=== PATIENT | female | born 1940 | race Caucasian/White ===

== ENCOUNTER 2017-10-16 08:39 | Inpatient (IN) | payer MEDICARE, OTHER ==
--- NOTE | 2017-10-03 15:35 | HP ---
HISTORY AND PHYSICAL: DATE OF ADMISSION/SURGERY: 10/16/17 DATE OF OFFICE VISIT: 10/03/17 SURGEON: Puja Matta MD * (DICTATED BY ANI BALDERRAMA) PROCEDURE: Right total hip arthroplasty. CHIEF COMPLAINT: Right hip pain. HISTORY OF PRESENT ILLNESS: Ms. Delgado is a 77-year-old female with complaints of right hip pain secondary to end-stage osteoarthritis. She has failed conservative management and elected to proceed with a right total hip arthroplasty, which is scheduled for 10/16/[address] Matta. PAST MEDICAL HISTORY: Hypertension, high cholesterol, and obesity. PAST SURGICAL HISTORY: Bilateral total knee arthroplasties, cholecystectomy, hernia repair, and lumpectomies. CURRENT MEDICATIONS: 1. Simvastatin 10 mg q.h.s. 2. Lisinopril 40 mg daily. 3. Hydrochlorothiazide 25 mg daily. 4. Omeprazole 20 mg daily. 5. Soolantra 1% to face as needed. 6. Ibuprofen 400 mg as needed. 7. Move Free joint supplement. 8. Centrum Silver. 9. Vitamin D. 10. Vitamin B6. ALLERGIES: SULFA ANTIBIOTICS. FAMILY HISTORY: Diabetes, heart disease, hypertension, stroke, cancer, and RA. SOCIAL HISTORY: She is a 77-year-old female. She lives with her spouse. She does not smoke or use drugs. Uses occasional alcohol. REVIEW OF SYSTEMS: A complete 14-point review of systems was reviewed with the patient. It was positive for GERD. She denies history of DVT, PE, hepatitis C , HIV, MRSA, or anesthesia problems. PHYSICAL EXAMINATION GENERAL: She is well developed, well nourished, in no acute distress. VITAL SIGNS: She stands 5 feet 4 inches tall, weighs 250 pounds. Her blood pressure is 160/80, her heart rate is 88. HEENT: Normocephalic, atraumatic. NECK: Supple. No palpable lymph nodes. PULMONARY: Lungs are clear to auscultation bilaterally. CARDIO: Regular rate and rhythm. Strong S1, S2. ABDOMEN: Soft, nontender, nondistended. NEUROLOGICAL: She is alert and oriented x3. Cranial nerves II through XII are intact. MUSCULOSKELETAL: Right lower extremity, the skin is intact. No open wounds or abrasions. She walks with an antalgic type gait, favoring her right hip. She has decreased internal and external rotation of the right hip. She has 2+ dorsalis pedis pulses. Intact sensation in her lower extremities. Muscle group strengths are intact at 5/5. ASSESSMENT AND PLAN: Ms. Delgado is a 77-year-old female with complaints of right hip pain secondary to end-stage osteoarthritis. She has failed conservative management and elected to proceed with a right total hip arthroplasty, which is scheduled for 10/16/[address] Matta discussed the risks and benefits of the surgery at today's visit and all of her questions were answered. Coumadin, Colace, and Percocet were sent to her pharmacy for postoperative pain control and DVT prophylaxis. She will see Dr. Matta back in 2 weeks after the surgery. ANI BALDERRAMA [id number]/[facility] #: [id number] MTDD
[~2017-10-16 08:39] MED LIST: Buffered Lidocaine 0.9% SYRIN* 5 ML/SYR SYRINGE INTRADERM ONE; Dexamethasone IV* 4 MG/ML 1 ML (4 MG) IV SLOW PU ONE
[2017-10-16] MEDS ORDERED: ceFAZolin 2 GM PREMIX (*) 2 GM/50 ML BAG IVPB ONE (08:48)
[2017-10-16] MEDS ORDERED: Dexamethasone IV* 4 MG/ML 1 ML (4 MG) ONE (08:48)
[2017-10-16] MEDS ORDERED: Buffered Lidocaine 0.9% SYRIN* 5 ML/SYR SYRINGE ONE (08:48)
[2017-10-16] MEDS ORDERED: KETAMINE HCL* 50 MG/ML 10 ML VIAL ONE (10:46)
[2017-10-16] MEDS ORDERED: Morphine PF AMP (0.5MG/ML)* 5 MG/10 ML AMP ONE (10:46)
[2017-10-16] MEDS ORDERED: Midazolam* 1 MG/ML 10 ML VIAL (10 MG) ONE (10:46)
[2017-10-16] MEDS ORDERED: Propofol* 10 MG/ML 20 ML BTL IV PUSH ONE (10:47)
[2017-10-16] MEDS ORDERED: Ondansetron INJ* 2 MG/ML VIAL ONE (10:47)
[2017-10-16] MEDS ORDERED: Bupivacaine 0.5% SDV PF* 30 ML VIAL ONE (12:06)
[2017-10-16] MEDS ORDERED: Phenylephrine INJ* 10 MG/ML 1 ML VIAL (10 MG) ONE ×2 (13:06→15:02)
[2017-10-16] MEDS ORDERED: Ondansetron INJ* 2 MG/ML VIAL IV PRN (13:11)
[2017-10-16] MEDS ORDERED: DiMENhydriNATE IV* 50 MG/ML VIAL IV PUSH PRN (13:11)
[2017-10-16] MEDS ORDERED: oxyCODONE/Acetamin 5/325 MG* TAB PO PRN (13:11)
[2017-10-16] MEDS ORDERED: Nalbuphine* 20 MG/ML 1 ML VIAL IV PRN ×2 (13:11)
[2017-10-16] MEDS ORDERED: Naloxone* 0.4 MG/ML 1 ML VIAL IV PRN (13:11)
[2017-10-16] MEDS ORDERED: Lidocaine 2% PF * 5 ML VIAL ONE (13:27)
[2017-10-16] MEDS ORDERED: Scopolamine 1.5 mg* PATCH TRANSDERM SCH (14:00)
[2017-10-16] MEDS ORDERED: Ropivacaine* 300 MG in NS 0.9% 250 ML* 240 ML EPIDURAL SCH (14:00)
[2017-10-16] MEDS ORDERED: Acetaminophen TAB* 325 MG PO PRN (14:13)
[2017-10-16] MEDS ORDERED: diPHENhydraMINE IV* 50 MG/ML 1 ml VIAL (BENADRYL) IV PRN (14:13)
[2017-10-16] MEDS ORDERED: Polyethylene Glycol 3350* 17 GM PACKET PO PRN (14:13)
[2017-10-16] MEDS ORDERED: Bisacodyl SUPP* 10 MG SUPP PR PRN (14:13)
[2017-10-16] MEDS ORDERED: diPHENhydraMINE PO* 25 MG PO PRN (14:13)
--- NOTE | 2017-10-16 14:49 | RAD ---
INDICATION: Right total hip replacement COMPARISON: August 27, 2017 TECHNIQUE: A crosstable lateral portable view the right hip was obtained in the OR FINDINGS: There is placement acetabular cup and femoral stem for sizing purposes. The bony detail is limited due to portable crosstable lateral technique.
[2017-10-16] MEDS ORDERED: ceFAZolin 1 GM VIAL(*) 1 GM in NS 0.9% 50 ML* 50 ML IVPB SCH (15:00)
[2017-10-16] MEDS: CMCS:Simvastatin TAB(NF) 10 MG TAB PO SCH (17:57)
[2017-10-16] MEDS ORDERED: Lisinopril TAB* 10 MG PO SCH (18:00)
--- NOTE | 2017-10-16 18:10 | RAD ---
HISTORY: Postop right hip arthroplasty COMPARISONS: August 27, 2017 VIEWS: 4, Frontal view of the pelvis with frontal and crosstable lateral views of the right hip FINDINGS: BONE DENSITY: Normal. BONES: The patient is status post right hip arthroplasty. There is no hardware failure or osteolysis. JOINTS: The patient is status post right hip arthroplasty. There is moderate osteoarthritis of the left hip. ALIGNMENT: There is no dislocation. SOFT TISSUES: Unremarkable. OTHER FINDINGS: Degenerative changes are noted of the spine IMPRESSION: STATUS POST RIGHT HIP ARTHROPLASTY
[2017-10-16] MEDS ORDERED: Warfarin TAB(*) 6 MG PO ONE (18:35)
[2017-10-16] MEDS: ceFAZolin 1 GM in Dextrose (*) 1 GM/50 ML BAG IVPB SCH (20:12)
[2017-10-16] MEDS: Docusate CAP* 100 MG PO SCH (20:13)
[2017-10-16] MEDS: Magnesium Hydroxide LIQ* 30 ML UDC PO SCH (20:13)
--- NOTE | 2017-10-16 23:53 | CONS ---
CC: Dr. Marck Pastor; Dr. Puja Matta * CONSULTATION REPORT: DATE OF CONSULT: 10/16/17 PRIMARY CARE PROVIDER: Dr. Marck Pastor. ATTENDING PHYSICIAN: Dr. Terence Hernandez (dictated by Marivel Mccoy NP). PHYSICIAN REQUESTING CONSULTATION: Dr. Puja Matta. REASON FOR CONSULTATION: Co-medical management in a patient with a history of hypertension, hyperlipidemia, and obesity. HISTORY OF PRESENT ILLNESS: Ms. Delgado is a 77-year-old female with a past medical history significant for hypertension, hyperlipidemia, obesity, osteoarthritis, who presented to the hospital today for an elective right total hip arthroplasty with Dr. Matta. The patient states that leading up to her surgery, she has been in her usual state of health. She denies any recent fever , chills, chest pain, shortness of breath, nausea, vomiting, diarrhea. She does report right hip pain. Due to the patient failing conservative measures, she underwent an elective right total hip arthroplasty. The hospitalists were asked to assist with the co-medical management of this patient during her hospitalization. PAST MEDICAL HISTORY: 1. Hypertension. 2. Hyperlipidemia. 3. Obesity. 4. Osteoarthritis. 5. Rosacea. 6. Osteopenia. PAST SURGICAL HISTORY: 1. Status post bilateral total knee arthroplasty. 2. Status post cholecystectomy. 3. Status post inguinal hernia repair. 4. Status post breast lumpectomies. 5. Status post hysterectomy. HOME MEDICATIONS: Include: 1. Simvastatin 10 mg oral daily at bedtime. 2. Lisinopril 40 mg oral daily. 3. Hydrochlorothiazide 25 mg oral daily. 4. Omeprazole 10 mg oral daily. 5. Soolantra 1% topical to the face as needed for rosacea. 6. Ibuprofen 400 mg oral every 6 to 8 hours as needed for pain. 7. Glucosamine chondroitin one tablet oral twice daily. 8. Centrum Silver one tablet oral daily. 9. Vitamin D 1000 units oral daily. 10. Vitamin B6 100 mg oral daily. 11. Osteo Bi-Flex one tablet oral twice daily. ALLERGIES: SULFA, METFORMIN, BACTRIM. FAMILY HISTORY: The patient's mother had a history of coronary artery disease. The patient has 3 sisters and 1 brother with a history of diabetes mellitus. The patient had a sister with a history of breast cancer. SOCIAL HISTORY: The patient denies tobacco or recreational drug use. She occasionally drinks alcohol. She lives with her . Her , Isaias Delgado will be her surrogate decision maker in the event that she is unable to make decisions for herself. REVIEW OF SYSTEMS: I performed a 14-point review of systems. All the pertinent positives and negatives as mentioned in the history of present illness. The remaining review of systems are negative. PHYSICAL EXAMINATION: Vital Signs: Temperature 97.3, heart rate 87, respiratory rate 16, O2 sat 100% on 2 L via nasal cannula, blood pressure 123/ 68. General Appearance: The patient is alert, pleasant, appears to be in no acute distress. Head: Normocephalic, atraumatic. EENT: Pupils are equal and reactive to light. Extraocular movements are intact. Cardiovascular: Regular rate and rhythm. S1, S2 are crisp. The patient has a systolic murmur. Respiratory: There is no accessory muscle use. The lungs are clear to auscultation bilaterally. Abdomen: Soft, nontender, and nondistended. There are bowel sounds present x4. Musculoskeletal: There is no clubbing or cyanosis noted. The patient exhibits good strength in all extremities. Extremities: There is no lower extremity edema. DP/PT pulses are 2+ and symmetric. Neurological: Cranial nerves II through XII are grossly intact. The patient moves all extremities. Psychological: The patient is calm and cooperative. Skin: There are no rashes or abnormalities. The patient has a dressing to her right hip that is clean, dry, and intact. DIAGNOSTIC STUDIES/LAB DATA: Preoperative labs from 09/23/17. Sodium 132, potassium 4.0, chloride 96, CO2 28, BUN 16, creatinine 0.58, glucose 113. White blood cell count 7.9, hemoglobin 12.8, hematocrit 38, and platelet count 252. Urinalysis negative. She had an EKG on September 22 showing sinus rhythm and a rate of 90, no acute signs of ischemia. IMPRESSION: Ms. Delgado is a 77-year-old female with past medical history significant for hypertension, hyperlipidemia, obesity, and osteoarthritis, who presented to the hospital for an elective right total hip arthroplasty. The hospitalists were asked to assist with the co-medical management of this patient during her hospitalization. ASSESSMENT/PLAN: 1. Status post right total hip arthroplasty. Postop day. Management will be per Orthopedic Surgery. The patient will be started on pain management and bowel regimen. She will have physical therapy and occupational therapy. She will have urinary catheter in place until postop day 1. We will trend the patient's H and H. 2. Hypertension. The patient has been normotensive during her hospitalization. I am going to hold her lisinopril and hydrochlorothiazide and resume likely in the morning as long as her blood pressures will allow. 3. Hyperlipidemia. The patient will be continued on her home simvastatin. 4. Rosacea. The patient will continue to use her Soolantra ointment as needed. 5. Obesity. The patient's BMI is 41. 6. Fluids, electrolytes, and nutrition. The patient will be on a clear liquid , advance diet as tolerated. 7. DVT prophylaxis. The patient will be placed on Lovenox bridged to warfarin per Orthopedic Surgery. 8. Code status. Full code. 9. Disposition. Inpatient with disposition per Orthopedic Surgery. TIME SPENT: Time for this consultation was approximately 45 minutes, greater than half of that was spent with the patient discussing medications, past medical history, the events leading to arrival today, and performing a physical examination. The case has been reviewed with the attending, Dr. Hernandez, who agrees with the plan of care. MARIVEL MCCOY, DOMITILA [id number]/[facility] #: [id number] YULIA
[2017-10-17] MEDS: ceFAZolin 1 GM in Dextrose (*) 1 GM/50 ML BAG IVPB SCH ×2 (04:27→13:12)
[2017-10-17 05:45] LABS: Hematocrit 27 % (35-47); Hemoglobin 9.2 g/dl (12.0-16.0)
[2017-10-17 05:57] LABS: BUN/Creatinine Ratio 30.8 (8-20); Calcium 8.3 mg/dL (8.6-10.3); EGFR Non-African American 88.6 (>60); Potassium 4.5 mmol/L (3.5-5.0)
[2017-10-17] MEDS ORDERED: Morphine INJ* 2 MG/ML 1 ML SYRINGE (TWO MG - NEW SYRINGE VERSION) IV PRN (06:00)
[2017-10-17] MEDS ORDERED: oxyCODONE/Acetamin 5/325 MG* TAB PO PRN (06:00)
[2017-10-17] MEDS ORDERED: Ondansetron INJ* 2 MG/ML VIAL IV PRN (06:00)
[2017-10-17] MEDS ORDERED: Ondansetron TAB* 4 MG PO PRN (06:00)
[2017-10-17] MEDS ORDERED: Omeprazole CAP* 20 MG PO SCH (07:30)
[2017-10-17] MEDS: Magnesium Hydroxide LIQ* 30 ML UDC PO SCH ×2 (08:13→20:47)
[2017-10-17] MEDS: Docusate CAP* 100 MG PO SCH ×2 (08:14→20:47)
[2017-10-17] MEDS: Cholecalciferol TAB* 1000 UNITS PO SCH (08:14)
[2017-10-17] MEDS: oxyCODONE TAB* 5 MG TAB PO PRN ×2 (08:14→13:12)
[2017-10-17] MEDS ORDERED: Hydrochlorothiazide TAB* 25 MG PO SCH (09:00)
[2017-10-17] MEDS: oxyCODONE/Acetamin 5/325 MG* TAB PO PRN ×2 (10:28→18:04)
[2017-10-17] MEDS ORDERED: Enoxaparin(*) 40 MG/0.4 ML SYR SUBCUT SCH (12:00)
--- NOTE | 2017-10-17 13:25 | PN ---
Progress Note - Progress Note Date of Service: 10/17/17 SOAP: Subjective: 77 y/o female s/p R KINGA by Dr. Matta 10/16. Patient overall feels "ok", + pain at hip with movement, had difficulty with PT this AM, however motivated. Pain medications helping. VSS afebrile. Objective: General- Well appearing, NAD, AO sitting in chair comfortably MSK- surgical dressing intact, no drainage noted, + df/pf b/l, neg homans b/l, sitlt b/l LEs PT 2+ b/l, moderate edema b/l LEs non-pitting Vital Signs Temp 97.5 F 10/17/17 08:03 Pulse 91 10/17/17 08:03 Resp 16 10/17/17 13:12 BP 102/78 10/17/17 08:03 Pulse Ox 100 10/17/17 08:03 Intake & Output 10/16/17 10/17/17 10/17/17 18:59 06:59 18:59 Intake Total 2800 1830 Output Total 30 675 Balance 2770 1155 Weight 113.307 kg Intake: IV Fluids 2800 980 LR 980 lr 2800 IVPB 50 ABX - CEFAZOLIN 50 Oral 800 Output: Martinez 675 Residual 30 Martinez 16 Fr 30 Assessment: 77 y/o female s/p R KINGA by Dr. Matta 10/16. Plan: - Hyponatermia- D/C'd IVF, repeat in AM, MVI - DVt prophylaxis- INR subtherap, continue coumadin, lovenox. - Continue PT/ OT - Continue pain regimen Active Medications Generic Name Dose Route Start Last Admin Trade Name Freq PRN Reason Stop Dose Admin Acetaminophen 650 mg 10/16/17 14:13 Tylenol Tab* PO Q4H PRN PAIN OR TEMPERATURE Bisacodyl 10 mg 10/16/17 14:13 Dulcolax Supp* WA DAILY PRN constipation Cholecalciferol 1,000 units 10/17/17 09:00 10/17/17 08:14 Vitamin D Tab* PO 1,000 units DAILY DEANN Administration Diphenhydramine HCl 25 mg 10/16/17 14:13 Benadryl Iv* IV Q6H PRN itching Diphenhydramine HCl 25 mg 10/16/17 14:13 Benadryl Po* PO Q6H PRN itching Docusate Sodium 100 mg 10/16/17 21:00 10/17/17 08:14 Colace Cap* PO 100 mg BID [facility] Administration Enoxaparin Sodium 40 mg 10/17/17 12:00 10/17/17 13:17 Lovenox(*) SUBCUT 40 mg Q24H DEANN Administration Lactulose 30 ml 10/16/17 14:13 Lactulose* PO Q6H PRN constipation Magnesium Hydroxide 30 ml 10/16/17 21:00 10/17/17 08:13 Milk Of Magnesia Liq* PO 30 ml BID [facility] Administration Morphine Sulfate 2 mg 10/17/17 06:00 Morphine Inj (Syringe)* IV Q2H PRN PAIN - BREAKTHROUGH Omeprazole 20 mg 10/17/17 13:26 Prilosec Cap* PO DAILY@0730 [facility] Ondansetron HCl 4 mg 10/17/17 06:00 Zofran Inj* IV Q6H PRN nausea Ondansetron HCl 4 mg 10/17/17 06:00 Zofran Tab* PO Q6H PRN NAUSEA Oxycodone HCl 10 mg 10/17/17 06:00 10/17/17 13:12 Roxycodone Tab* PO 10 mg Q4H PRN Administration PAIN Oxycodone/Acetaminophen 1 tab 10/17/17 06:00 Percocet 5/325 Tab* PO Q4H PRN PAIN Oxycodone/Acetaminophen 2 tab 10/17/17 06:00 10/17/17 10:28 Percocet 5/325 Tab* PO 2 tab Q4H PRN Administration PAIN Pharmacy Profile Note 1 note 10/19/17 13:15 Scopolamine Patch Remove* PATCH OFF 10/19/17 13:16 .AFTER 72 HOURS ONE Polyethylene Glycol/Electrolytes 17 gm 10/16/17 14:13 Miralax* PO DAILY PRN Constipation Simvastatin 10 mg 10/16/17 18:00 10/16/17 17:57 Zocor(Nf) PO Not Given QPM [facility] Temazepam 15 mg 10/17/17 21:00 Restoril Cap* PO BEDTIME PRN INSOMNIA Warfarin Sodium 6 mg 10/17/17 17:00 Coumadin Tab(*) PO 10/17/17 17:01 ONCE@1700 [facility] Protocol
[2017-10-17] MEDS: Multivitamins/Minerals TAB PO SCH (16:49)
[2017-10-17] MEDS ORDERED: Warfarin TAB(*) 6 MG PO ONE (17:00)
[2017-10-17] MEDS ORDERED: NS 0.9% 500 ML* 500 ML IV ONE (18:00)
[2017-10-17] MEDS ORDERED: Lisinopril TAB* 10 MG PO SCH (18:00)
[2017-10-17] MEDS: CMCS:Simvastatin TAB(NF) 10 MG TAB PO SCH (18:02)
--- NOTE | 2017-10-17 20:24 | PN ---
Progress Note - Progress Note Date of Service: 10/17/17 Note: Pt was a CAT mamie when she had a near syncopal episode upon getting up from the toilet seat. Neurologically intact. SBP at 111. Pt was transporter with wheelchair back to bed. Pt also appeared mildly sedated -suspect form narcotic pain meds. D/w RN to use the bedpan at night.
[2017-10-17] MEDS ORDERED: Temazepam CAP* 15 MG PO PRN (21:00)
--- NOTE | 2017-10-18 00:44 | OP ---
OPERATIVE REPORT: DATE OF OPERATION: 10/16/17 DATE OF : 42 SURGEON: Puja Matta MD SATURATOR OPERATOR: ANI Deleon Mr. Hernandez did help throughout the procedure with preparation of the leg, wound retraction, manipulation of the hip, and wound closure. ANESTHESIOLOGIST: Diony Drake MD ANESTHESIA: Spinal. PRE-OP DIAGNOSIS: Degenerative osteoarthritis of the right hip joint. POST-OP DIAGNOSIS: Degenerative osteoarthritis of the right hip joint. OPERATIVE PROCEDURE: Right total hip arthroplasty with modifier for morbid obesity. Right abductor tendon primary repair. INDICATIONS: Ms. Delgado is 77-year-old female with years of increasingly severe right hip pain. She failed conservative treatment with the antiinflammatories, pain medications, physical therapy, and attempts at weight loss. Radiographs showed [id number] arthritis. Due to continued pain and decreased quality of life, she elected to undergo right total hip arthroplasty. Informed consent was obtained from the patient. She understood the risks of surgery included but were not limited to bleeding, infection, damage to nearby structures, continued pain, need for further surgery, intraoperative fracture, nerve palsy, hardware failure, loosening, dislocation, leg length discrepancy, stroke, heart attack, blood clot, and . She wished to proceed. COMPLICATIONS: None. ESTIMATED BLOOD LOSS: 500 cc. SPECIMENS: Femoral head and acetabular reaming sent to Pathology. HARDWARE USED: This is uncemented [place] total hip hardware. For the cup, a 54E Trident Tritanium. 120-mm screws used. For the liner, a MDM cementless liner 42E. For the stem, an Accolade 2 size 5.5 with a 127 neck. For the head, a Biolox delta ceramic 28 -4. For the insert, an MDM insert, 28/48/42E. INTRAOPERATIVE FINDINGS: Intraoperatively, the patient was noted to have complete loss of cartilage along the femoral head and acetabulum. She had a chronic tear of the abductor tendon with at least 50% of the gluteus medius torn and retracted proximally. She did have a morbidly obese body habitus, which added at least 1 hour to the surgical time. DESCRIPTION OF PROCEDURE: Ms. Delgado was identified in the preanesthesia unit. Her right lower extremity was marked as the correct operative side. Informed consent was signed and placed in the chart. The patient was taken to the operating room and placed under spinal anesthesia. A Martinez catheter was placed. The patient was placed in the left lateral decubitus position on the PEG board. All bony prominences were well padded. Right lower extremity was prepped and draped in the usual sterile fashion. Preop time-out was made to correctly identify the patient's side and site. Appropriate perioperative antibiotics were given within 1 hour of incision. A 15-cm posterior hip incision was made with a 10 blade and carried down to the lateral fascial layer. There was at least 10 cm of subcutaneous fat. A new 10 blade was used to incise the lateral fascial layer in line with the skin incision. It was immediately evident that the abductor tendon along the greater trochanteric region was chronically torn. Approximately 50% to 70% of the gluteus medius tendon was chronically torn and proximally retracted. Decision at this point was to use the MDM implant for greater stability. Charnley retractor was placed. The piriformis and conjoint tendons were released off the posterolateral femur was tagged with #5 Ethibonds. Electrocautery was used to make a standard posterolateral capsular flap. This was also tagged with #5 Ethibonds. The hip was carefully dislocated. Lesser troch to the center of the femoral head measured 57 mm. An oscillating saw was used to make the appropriate femoral neck cut. The femur was retracted anteriorly. After appropriate placement of retractors, the acetabulum was visualized. Long- handled knife was used to sharply remove any remaining labrum from the acetabular rim. The acetabulum was sequentially reamed up to a size 53. Bleeding subchondral bone bed was obtained. A 53 trial had good fit. Final implant chosen was a Trident Tritanium 54E acetabular cup. This was impacted into the acetabulum without difficulty. Excellent stability and appropriate anteversion/abduction angles were obtained. A single 20-mm screw was placed in the superoposterior quadrant for added stability. An MDM cementless liner 42E was chosen and impacted into the acetabulum. Stability of the liner was checked and rechecked and noted to be stable. Attention was turned to preparation of the femoral canal. A canal finder was used to enter the proximal femur. Proximal femur was sequentially broached up to a size 5.5. A 5.5 broach had good fit. A 127 neck trial was chosen as well as a 28 +0 head and the appropriate insert. Lesser troch to the center of the femoral head measured 60 mm. The hip was reduced and taken through range of motion. The hip was stable in all positions. Soft tissue tension and leg lengths were appropriate. All trials were carefully removed. The trial implant chosen was an Accolade TMZF size 5.5 with a 127-degree neck. This was carefully impacted into the femoral canal without difficulty. Appropriate anteversion and good stability were obtained. A 28 -4 ceramic femoral head was chosen with the 28/48/42E MDM insert. This was impacted on to the femoral neck. Lesser troch to center of the femoral neck measured 58 mm. The hip was reduced and taken through range of motion. The hip was stable in all positions. The hip was copiously irrigated with sterile saline. Previously tagged capsule and tendons were reapproximated to the posterolateral femur through 2 trochanteric drill holes. #5 Ethibond sutures were used to primarily repair some of the proximally retracted and chronically torn abductor tendon. This was pulled down to soft tissue along the greater trochanter and IT band. Lateral fascial layer was closed using interrupted #1 Vicryls. The rest of the incision was closed in a layered fashion using 0 and 2-0 Vicryls. Skin was closed using running 3-0 Monocryl and Dermabond. Sterile Adaptic, 4x4s, and paper tape were used to cover the incision. The patient's anesthesia was reversed without difficulty. She was taken to the PACU in stable condition. Intended weightbearing will be weightbearing as tolerated. Intended DVT prophylaxis will be Coumadin with a Lovenox bridge. [id number]/[facility] #: [id number] [facility] HOSPITALGasper
[2017-10-18] MEDS: oxyCODONE/Acetamin 5/325 MG* TAB PO PRN ×3 (02:43→15:48)
[2017-10-18 06:02] LABS: Hematocrit 24 % (35-47); Hemoglobin 8.2 g/dl (12.0-16.0)
[2017-10-18 06:17] LABS: BUN/Creatinine Ratio 25.9 (8-20); Calcium 8.1 mg/dL (8.6-10.3); EGFR African American 141.2 (>60); EGFR Non-African American 109.8 (>60); Potassium 4.3 mmol/L (3.5-5.0)
[2017-10-18] MEDS: Omeprazole CAP* 20 MG PO SCH (08:16)
[2017-10-18] MEDS: Multivitamins/Minerals TAB PO SCH (08:16)
[2017-10-18] MEDS: Docusate CAP* 100 MG PO SCH ×2 (08:17→20:46)
[2017-10-18] MEDS: Cholecalciferol TAB* 1000 UNITS PO SCH (08:17)
[2017-10-18] MEDS: Magnesium Hydroxide LIQ* 30 ML UDC PO SCH ×2 (08:17→20:46)
--- NOTE | 2017-10-18 10:02 | PN ---
Progress Note - Progress Note Date of Service: 10/18/17 SOAP: Subjective: Pt. is alert, reports syncopal episode overnight. Objective: RLE - thigh swollen, soft, dressing changed, inc c/d/i. distally nvi. Vital Signs: Temp Pulse Resp BP Pulse Ox 98.1 F 109 18 110/53 94 10/18/17 08:03 10/18/17 08:03 10/18/17 08:16 10/18/17 08:03 10/18/17 08:03 Laboratory Results - last 24 hr 10/18/17 10/18/17 10/18/17 05:35 05:35 05:35 Hgb 8.2 L Hct 24 L INR (Anticoag Therapy) 1.65 H Sodium 130 L Potassium 4.3 Chloride 97 L Carbon Dioxide 30 Anion Gap 3 BUN 14 Creatinine 0.54 Est GFR ( Amer) 141.2 Est GFR (Non-Af Amer) 109.8 BUN/Creatinine Ratio 25.9 H Glucose 131 H Calcium 8.1 L Blood Type Antibody Screen Crossmatch 10/18/17 05:35 Hgb Hct INR (Anticoag Therapy) Sodium Potassium Chloride Carbon Dioxide Anion Gap BUN Creatinine Est GFR ( Amer) Est GFR (Non-Af Amer) BUN/Creatinine Ratio Glucose Calcium Blood Type A Negative Antibody Screen Negative Crossmatch See Detail Assessment: 77 yo F pod 2 s/p RTHA Plan: syncopal overnight - tachy this AM - will order BLE ultrasound, slight calf ttp and swelling with MO s/p RTHA 2 units prbc for tachy and syncopal event with hct 24 d/c lovenox d/c daniel today and ariana d/w hospitalist team 6 mg coumadin tonight, lovenox today
--- NOTE | 2017-10-18 10:13 | PN ---
Subjective Date of Service: 10/18/17 Interval History: Ms. Delgado reports that she is tired but denies other complaint. She specifically denies chest pain, SOB, nausea, or abdominal pain. She has no pain at rest to her right leg. Objective Active Medications: Acetaminophen (Tylenol Tab*) 650 mg PO Q4H PRN Bisacodyl (Dulcolax Supp*) 10 mg CA DAILY PRN Cholecalciferol (Vitamin D Tab*) 1,000 units PO DAILY DEANN Diphenhydramine HCl (Benadryl Iv*) 25 mg IV Q6H PRN Diphenhydramine HCl (Benadryl Po*) 25 mg PO Q6H PRN Docusate Sodium (Colace Cap*) 100 mg PO BID DEANN Lactulose (Lactulose*) 30 ml PO Q6H PRN Magnesium Hydroxide (Milk Of Magnesia Liq*) 30 ml PO BID DEANN Morphine Sulfate (Morphine Inj (Syringe)*) 2 mg IV Q2H PRN Multivitamins/Minerals (Theragran/Minerals Tab*) 1 tab PO DAILY [facility] Omeprazole (Prilosec Cap*) 20 mg PO DAILY@0730 [facility] Ondansetron HCl (Zofran Inj*) 4 mg IV Q6H PRN Ondansetron HCl (Zofran Tab*) 4 mg PO Q6H PRN Oxycodone HCl (Roxycodone Tab*) 10 mg PO Q4H PRN Oxycodone/Acetaminophen (Percocet 5/325 Tab*) 1 tab PO Q4H PRN Oxycodone/Acetaminophen (Percocet 5/325 Tab*) 2 tab PO Q4H PRN Pharmacy Profile Note (Scopolamine Patch Remove*) 1 note PATCH OFF .AFTER 72 HOURS ONE Polyethylene Glycol/Electrolytes (Miralax*) 17 gm PO DAILY PRN Simvastatin (Zocor(Nf)) 10 mg PO QPM DEANN Temazepam (Restoril Cap*) 15 mg PO BEDTIME PRN Warfarin Sodium (Coumadin Tab(*)) 6 mg PO DAILY@1700 [facility] Vital Signs - 8 hr 10/18/17 10/18/17 10/18/17 02:43 03:27 08:00 Temperature 98.3 F Pulse Rate 97 Respiratory 18 17 18 Rate Blood Pressure 147/48 (mmHg) O2 Sat by Pulse 100 94 Oximetry 10/18/17 10/18/17 08:03 08:16 Temperature 98.1 F Pulse Rate 109 Respiratory 16 18 Rate Blood Pressure 110/53 (mmHg) O2 Sat by Pulse 94 Oximetry Oxygen Devices in Use Now: None Appearance: Patient sitting up in chair in NAD Eyes: No Scleral Icterus Ears/Nose/Mouth/Throat: Mucous Membranes Moist Neck: Trachea Midline Respiratory: Symmetrical Chest Expansion and Respiratory Effort, Clear to Auscultation Cardiovascular: NL Sounds; No Murmurs; No JVD, No Edema Abdominal: NL Sounds; No Tenderness; No Distention Lymphatic: No Cervical Adenopathy Extremities: No Edema Skin: No Rash or Ulcers Neurological: Alert and Oriented x 3, NL Muscle Strength and Tone Nutrition: Taking PO's Result Diagrams: 10/18/17 05:35 10/18/17 05:35 Assess/Plan/Problems-Billing Assessment: Ms. Delgado is a 77 yo female with a PMH of htn, hld and obestiy who was admitted on 10/16/17 for right total hip arthroplasty. - Patient Problems (1) S/P total hip arthroplasty Comment: - Management per ortho. - Hgb 8.2 with syncopal episode overnight, plan for 2 units PRBC. - PT/OT. - Pain meds with bowel regimen. (2) Syncope Comment: - Episode of syncope when getting up to toilet overnight. Remains mildly tachycardic but BP stable. - Suspect vasovagal. - Continue fluids and PRBC, hold BP meds for now. (3) Anemia Comment: - Symptomatic acute blood loss anemia. - Plan for 2 units PRBC. (4) Lower extremity edema Comment: - Doppler B LEs ordered per ortho to rule out DVT. (5) Hypertension Comment: - SBP 110-150. - Continue to hold hctz/lisinopril in setting of tachycardia with likely component of dehydration. (6) Hyperlipidemia Comment: - Continue simvastatin. (7) DVT prophylaxis Comment: - Warfarin per ortho. (8) Full code status Comment: Status and Disposition: Inpatient with disposition per ortho.
[2017-10-18] MEDS ORDERED: Warfarin TAB(*) 6 MG PO SCH (17:00)
[2017-10-18] MEDS: CMCS:Simvastatin TAB(NF) 10 MG TAB PO SCH (18:18)
[2017-10-18] MEDS: Nystatin TOP POWDER* 15 GM BTL TOPICAL SCH ×2 (18:19→20:46)
--- NOTE | 2017-10-18 19:35 | RAD ---
INDICATION: Pain and swelling. COMPARISON: None TECHNIQUE: Duplex interrogation of the Lowerextremity was performed. FINDINGS: Deep veins: The common femoral, great saphenous, profunda femoris, proximal, mid, and distal deep femoral, popliteal, posterior and tibial veins are interrogated. The mid and distal right femoral and the peroneal veins are not well visualized with the grayscale images but are seen with color. There is normal compressibility, augmentation, and phasic flow. Superficial veins: There are no findings of superficial thrombophlebitis. Popliteal fossa:There is no evidence of a popliteal cyst. Soft tissues:There are no soft tissue abnormalities. IMPRESSION: Mildly Limited examination. No evidence of deep venous thrombosis
[2017-10-18] MEDS: oxyCODONE TAB* 5 MG TAB PO PRN (20:45)
[2017-10-19] MEDS: oxyCODONE TAB* 5 MG TAB PO PRN (00:50)
[2017-10-19] MEDS: oxyCODONE/Acetamin 5/325 MG* TAB PO PRN ×2 (05:32→11:06)
[2017-10-19 06:19] LABS: Hematocrit 29 % (35-47); Hemoglobin 9.9 g/dl (12.0-16.0)
[2017-10-19] MEDS: Omeprazole CAP* 20 MG PO SCH (07:28)
--- NOTE | 2017-10-19 08:46 | PN ---
Progress Note - Progress Note Date of Service: 10/19/17 SOAP: Subjective: Pt. feels good, wants to go home. Objective: RLE - thigh soft, distally nvi. Vital Signs: Temp Pulse Resp BP Pulse Ox 98.3 F 101 18 143/57 97 10/19/17 04:14 10/19/17 04:14 10/19/17 07:29 10/19/17 04:14 10/19/17 07:29 Laboratory Results - last 24 hr 10/18/17 10/19/17 10/19/17 05:35 06:09 06:09 Hgb 9.9 L Hct 29 L INR (Anticoag Therapy) 1.87 H Blood Type A Negative Antibody Screen Negative Crossmatch See Detail Assessment: 77 yo F pod 2 s/p LTKA Plan: wbat pt/ot 6 mg coumadin tonight d/c to home with vns today
[2017-10-19] MEDS: Nystatin TOP POWDER* 15 GM BTL TOPICAL SCH (09:04)
[2017-10-19] MEDS: Magnesium Hydroxide LIQ* 30 ML UDC PO SCH (09:04)
[2017-10-19] MEDS: Cholecalciferol TAB* 1000 UNITS PO SCH (09:04)
[2017-10-19] MEDS: Docusate CAP* 100 MG PO SCH (09:04)
[2017-10-19] MEDS: Multivitamins/Minerals TAB PO SCH (09:04)
[2017-10-19 10:02] VITALS: BP 137/58
--- NOTE | 2017-10-19 12:31 | DS ---
DISCHARGE SUMMARY: DATE OF ADMISSION: 10/16/17 DATE OF DISCHARGE: 10/19/17 PROVIDER: Puja Matta MD * (DICTATED BY ANI PERES) ADMITTING DIAGNOSIS: Severe end-stage osteoarthritis of the right hip. 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 SECONDARY DIAGNOSES: 1. Hypertension. 2. High cholesterol. HISTORY OF PRESENT ILLNESS: Ms. Delgado is a 77-year-old female followed by Dr. Matta with ongoing pain in the right hip secondary to end-stage osteoarthritis. She failed conservative management and elected to proceed with a right total hip arthroplasty. HOSPITAL COURSE: On 10/16/17, the patient was admitted to [facility] and underwent a successful right total hip arthroplasty by Dr. Matta. She recovered briefly in the post-anesthesia care unit and was transferred to the short- stay surgical unit in stable condition. Postoperative x-rays were satisfactory. On postop day 1, the patient's pain was controlled with oral and IV pain medication. She was able to participate with physical therapy. Her H and H was 9.2 and 27 on postop day 1. INR was 0.99 with 6 mg of Coumadin previously. On postop day 2, the patient reported a syncopal episode overnight. She did have some swelling in the leg. She underwent venous Doppler of bilateral lower extremities to rule out a DVT, which was negative. The patient was also mildly tachycardic on postop day 2. H and H was 8.2 and 24. INR 1.6 with 6 mg of Coumadin previously. She was also transfused 2 units of packed red blood for the tachycardia, syncopal event, and low H and H. Lovenox was stopped at this time. Martinez was removed as well. On postop day 3, the patient was feeling much better. Pain was well controlled with oral pain medication. She was able to participate more actively with physical therapy and was stable for discharge home. She had an H and H of 9.9 and 29. INR was 1.8. DISCHARGE CONDITION: Stable. DISCHARGE MEDICATIONS: The patient will have, 1. Percocet 5/325 one to two tabs p.o. q.4-6 hours p.r.n. pain. 2. Colace 100 mg p.o. b.i.d. 3. Coumadin 6 mg on 10/19/17. She will resume her home medications: 1. Simvastatin 10 mg p.o. daily. 2. Vitamin B6, 100 mg p.o. daily. 3. Prilosec 20 mg p.o. daily. 4. Multivitamin 1 tab p.o. daily. 5. Osteo Bi-Flex 1 tab p.o. daily. 6. Lisinopril 40 mg daily. 7. Hydrochlorothiazide 25 mg daily. 8. Ibuprofen 400 mg as needed. She was advised to take this sparingly due to her Coumadin. 9. Vitamin D3, 1000 units daily. DISCHARGE INSTRUCTIONS: The patient is instructed to keep her dressing clean, dry, and intact until postop day 4. At that time, she may shower normally. She is understanding to cover the incision with a dry dressing as needed. She will not submerge the incision in a bathtub, hot tub, or swimming pool. She will have home visiting nurse service for INR draws on 10/20/17 and home physical therapy. She is understanding to call the office with any problems or concerns. She will go directly to the emergency room with any chest pain, shortness of breath, fever greater than 101.5, calf pain, or swelling. ANI PERES [id number]/[facility] #: [id number] MTDD
[2017-10-19] MEDS ORDERED: Scopolamine PATCH Remove* 1 NOTE MISC PATCH OFF ONE (13:15)
== END 2017-10-19 12:25 | disposition home health service (06) | DRG 470 ==
LOC: AA 08:39 → SSU 17:46
PROVIDERS: ADMIT Orthopaedic Surgery Adult Reconstructive Orthopaedic Surgery; ATTEND Orthopaedic Surgery Adult Reconstructive Orthopaedic Surgery
PROC: 0LQJ0ZZ Repair Right Hip Tendon, Open Approach (ICD-10-PCS; 2017-10-16)
PROC: 0SR901A Replacement of Right Hip Joint with Metal Synthetic Substitute, Uncemented, Open Approach (ICD-10-PCS; principal; 2017-10-16 11:00)
PROC: 30233N1 Transfusion of Nonautologous Red Blood Cells into Peripheral Vein, Percutaneous Approach (ICD-10-PCS; 2017-10-18)
DX: M16.11 Unilateral primary osteoarthritis, right hip (principal); Z68.41 Body mass index [BMI] 40.0-44.9, adult; E66.01 Morbid (severe) obesity due to excess calories; D62 Acute posthemorrhagic anemia; E87.1 Hypo-osmolality and hyponatremia; I10 Essential (primary) hypertension; E78.00 Pure hypercholesterolemia, unspecified; Z96.653 Presence of artificial knee joint, bilateral; R55 Syncope and collapse; R00.0 Tachycardia, unspecified; R60.0 Localized edema; E78.5 Hyperlipidemia, unspecified; L71.9 Rosacea, unspecified; M85.869 Other specified disorders of bone density and structure, unspecified lower leg; Z83.3 Family history of diabetes mellitus; Z79.1 Long term (current) use of non-steroidal anti-inflammatories (NSAID); Z79.899 Other long term (current) drug therapy; Z88.2 Allergy status to sulfonamides; Z82.49 Family history of ischemic heart disease and other diseases of the circulatory system; Z80.3 Family history of malignant neoplasm of breast; Z82.3 Family history of stroke; Z82.61 Family history of arthritis
CPT/HCPCS: 36415; 62327; 80048; 85014; 85018; 85610; 86850; 86900; 86901; 86922; 93970; 94760; A9270-GY; C1713; C1776; J0690; J1100; J1650; J2250; J2405; J2704; J2795; P9040

== ENCOUNTER 2024-03-08 05:31 | Observation (INO) ==
[~2024-03-08 05:31] MED LIST changes: -Buffered Lidocaine 0.9% SYRIN* 5 ML/SYR SYRINGE INTRADERM ONE; -Dexamethasone IV* 4 MG/ML 1 ML (4 MG) IV SLOW PU ONE; +Naloxone 0.4 mg VIAL 0.4 mg/ml 1 ml VIAL IV PRN; +Ondansetron 4 mg VIAL 2 MG/ML 2 ml VIAL IV PRN; +fentaNYL 100 mcg/2 ml 50 MCG/ML VIAL IV PRN
[2024-03-08] MEDS ORDERED: ceFAZolin 2 GM PREMIX 2 GM/50 ML BAG ONE (05:57)
[2024-03-08] MEDS ORDERED: Tranexamic Acid 1 GM/100ML BAG 2,000 MG/200 ML BAG IV ONE (05:57)
[2024-03-08] MEDS ORDERED: Famotidine IV 10 MG/ML 2 ml VIAL (20 mg) ONE (05:57)
[2024-03-08] MEDS: Lactated Ringers 1000 ml BAG 1,000 ML IV SCH ×2 (06:14→13:26)
[2024-03-08] MEDS: Buffered Lidocaine 1% SYRIN 1 ml INTRADERM ONE (06:14)
[2024-03-08] MEDS: Famotidine IV 10 MG/ML 2 ml VIAL (20 mg) IV ONE (06:14)
[2024-03-08 06:21] LABS: Rapid COVID-19 Molecular Undetected (Undetected)
[2024-03-08] MEDS ORDERED: ROPIVACAINE 5 MG/ML 30 ML BTL (0.5%) ONE ×2 (06:51→07:24)
[2024-03-08] MEDS ORDERED: Dexamethasone IV 4 MG/ML VIAL 1 ml VIAL ONE ×2 (06:52→07:58)
[2024-03-08] MEDS ORDERED: Midazolam 2 mg/2 ml VIAL 1 mg/ml 2 ml VIAL (2 mg) ONE (06:52)
[2024-03-08] MEDS ORDERED: Bupivacaine 0.5% 50 ML MDV VIAL ONE (06:59)
[2024-03-08] MEDS ORDERED: Propofol 10 MG/ML 20 ML BTL ONE (07:06)
[2024-03-08] MEDS ORDERED: Lidocaine 2% PF 5 ML VIAL ONE (07:06)
[2024-03-08] MEDS ORDERED: Sodium Chloride 0.9% 10 ML ONE (07:07)
[2024-03-08] MEDS ORDERED: fentaNYL 100 mcg/2 ml 50 MCG/ML VIAL ONE (07:07)
[2024-03-08] MEDS ORDERED: Rocuronium 50 mg VIAL 10 mg/ml 5 ml VIAL (50 mg) ONE ×2 (07:07→08:23)
[2024-03-08] MEDS ORDERED: Phenylephrine IV 10 MG/ML 1 ml VIAL ONE (07:07)
[2024-03-08] MEDS ORDERED: Vancomycin 1,000 MG VIAL ONE (07:12)
[2024-03-08] MEDS ORDERED: Albumin Human 5% 12.5 GM/250 ML BTL IV ONE (07:45)
[2024-03-08] MEDS ORDERED: Ondansetron 4 mg VIAL 2 MG/ML 2 ml VIAL ONE (07:58)
[2024-03-08] MEDS ORDERED: Glycopyrrolate IV 0.2 MG/ML 1 ML VIAL ONE (09:18)
[2024-03-08] MEDS ORDERED: Morphine 2 MG/ML SYRINGE IV PRN (10:01)
[2024-03-08] MEDS ORDERED: Lactulose 30 ml UDC PO PRN (10:01)
[2024-03-08] MEDS ORDERED: Ondansetron ODT 4 mg TAB 4 MG TAB PO PRN (10:01)
[2024-03-08] MEDS ORDERED: Ondansetron 4 mg VIAL 2 MG/ML 2 ml VIAL IV PRN (10:01)
[2024-03-08] MEDS ORDERED: Magnesium Hydroxide LIQ 30 ML UDC PO PRN (10:01)
[2024-03-08] MEDS ORDERED: Fluticasone NASAL SPRAY 50MCG 16 gm SPRAY BTL INTRANASAL PRN (12:28)
[2024-03-08] MEDS: ceFAZolin 1 GM ADVAN 1 GM in NS 0.9% 50 ML 50 ML IVPB SCH (15:42)
[2024-03-08] MEDS: Magnesium Hydroxide LIQ 30 ML UDC PO SCH (20:28)
[2024-03-08] MEDS: Benzocaine/Menthol LOZ PO PRN (21:41)
[2024-03-09 06:08] LABS: Hematocrit 31.7 % (35-45); Hemoglobin 10.9 g/dL (11.5-14.3); Mean Platelet Volume 7.4 fL (7.5-11.2); Platelet Count 198 10^3/uL (150-450)
[2024-03-09 06:30] LABS: Calcium 8.7 mg/dL (8.6-10.3); Creatinine, Serum 0.72 mg/dL (0.51-0.95); Potassium 4.3 mmol/L (3.5-5.0); eGFR CKD-EPI 83.4 (>60)
[2024-03-09] MEDS: Vitamin THERAPEUTIC TAB PO SCH (08:12)
[2024-03-09 10:05] VITALS: BP 115/89
== END 2024-03-09 12:45 | disposition home or self-care (01) ==
LOC: OR 05:31 → SSU 05:31
PROVIDERS: ADMIT Orthopaedic Surgery; ATTEND Orthopaedic Surgery